=== PATIENT | male | born 1985 | race Caucasian/White ===

== ENCOUNTER 2020-09-06 11:13 | Emergency (ER) | payer OTHER ==
[2020-09-06 12:23] LABS: HEMOGLOBIN 15.9 gm/dl (14.0-17.5); RED BLOOD COUNT 4.98 M/UL (4.20-5.50); WHITE BLOOD COUNT 7.6 K/UL (4.5-11.0)
[2020-09-06 12:58] LABS: BUN/CREATININE RATIO 12 (0-10)
[2020-09-06] MEDS ORDERED: ZOFRAN ODT 4 MG4 MG GT (15:50)
== END 2020-09-06 16:30 | disposition home or self-care (01) ==
LOC: ER1 11:13
PROVIDERS: Family Medicine
DX: K85.90 Acute pancreatitis without necrosis or infection, unspecified (principal); Z88.8 Allergy status to other drugs, medicaments and biological substances; F17.290 Nicotine dependence, other tobacco product, uncomplicated
CPT/HCPCS: 80053; 82150; 83605; 83690; 85025; 85610; 85730; 96374; 96375; 99284; J1885; J2405; Q9967

== ENCOUNTER 2020-09-27 16:23 | Emergency (ER) | payer OTHER ==
[~2020-09-27 16:23] MED LIST: ZOFRAN ODT 4 MG4 MG GT
[2020-09-27 20:00] LABS: HEMOGLOBIN 15.1 gm/dl (14.0-17.5); RED BLOOD COUNT 4.59 M/UL (4.20-5.50)
[2020-09-27 20:22] LABS: BUN/CREATININE RATIO 3 (0-10)
[2020-09-28] MEDS ORDERED: BENTYL 20MG TAB20 MG PO (00:46)
[2020-09-28] MEDS ORDERED: FLAGYL500 MG PO (00:46)
[2020-09-28] MEDS ORDERED: BACTRIM DS TAB1 EACH PO (00:46)
[2020-09-28] MEDS ORDERED: ZOFRAN ODT 4 MG4 MG PO (00:46)
[2020-09-28] MEDS ORDERED: PROTONIX40 MG PO (00:46)
== END 2020-09-28 01:15 | disposition home or self-care (01) ==
LOC: ER1 16:23
PROVIDERS: Physician Assistant
DX: K70.10 Alcoholic hepatitis without ascites (principal); F10.129 Alcohol abuse with intoxication, unspecified; K52.9 Noninfective gastroenteritis and colitis, unspecified; Z20.822 Contact with and (suspected) exposure to COVID-19; K21.9 Gastro-esophageal reflux disease without esophagitis; Z79.899 Other long term (current) drug therapy
CPT/HCPCS: 0240U; 71045; 80053; 81001; 83605; 83690; 85025; 87040; 96374; 96375; 96376; 99284; C9113; G0480; J2270; J2405; Q9967